=== PATIENT | female | born 2000 | race Two or more races ===

== ENCOUNTER 2024-06-19 20:28 | Emergency (ER) | payer OTHER ==
[~2024-06-19] VITALS: Ht 154.9 cm; Wt 55.3 kg
[2024-06-19] MEDS ORDERED: PRENATAL + DHA1 EAC1 PO (21:25)
[2024-06-19] MEDS ORDERED: MONTELUKAST SODIUM 10 MG TABLET PO ONE (21:45)
[2024-06-19] MEDS ORDERED: GUAIFENESIN 200 MG/10 ML BLIST.PACK PO ONE ×2 (21:45→21:56)
[2024-06-19 23:28] LABS: HEMATOCRIT 32.8 % (36.0-45.00); HEMOGLOBIN 11.8 g/dL (12.0-15.00); MEAN CELL VOLUME 82.6 fL (80.00-100.00); MEAN CORPUSCULAR HEMOGLOBIN 29.6 pg (27.00-32.0); MEAN CORPUSCULAR HGB CONC 35.9 g/dl (32.0-36.0); PLATELET COUNT 266 K/uL (150-450); RED BLOOD COUNT 3.97 M/uL (4.00-6.00); RED CELL DISTRIBUTION WIDTH 13.5 % (11.5-14.5)
[2024-06-20] MEDS ORDERED: ZYRTEC10 M3 PO (00:34)
[2024-06-20] MEDS ORDERED: OSEL75CA PO (00:41)
== END 2024-06-20 01:11 ==
LOC: ER 20:30
PROVIDERS: General Practice
DX: O26.892 Other specified pregnancy related conditions, second trimester (principal); J00 Acute nasopharyngitis [common cold]; Z3A.24 24 weeks gestation of pregnancy; Z20.822 Contact with and (suspected) exposure to COVID-19

== ENCOUNTER 2024-07-07 13:47 | Emergency (ER) | payer OTHER ==
[~2024-07-07] VITALS: Ht 154.9 cm; Wt 53.5 kg
[~2024-07-07 13:47] MED LIST: OSEL75CA PO; PRENATAL + DHA1 EAC1 PO; ZYRTEC10 M3 PO
[2024-07-07] MEDS ORDERED: CEFTRIAXONE SODIUM 1,000 MG VIAL IM STA (14:29)
[2024-07-07] MEDS ORDERED: CEFADROXIL500 MG PO (14:36)
[2024-07-07] MEDS ORDERED: CEFTRIAXONE SODIUM 1,000 MG VIAL ONE (14:49)
== END 2024-07-07 15:32 | disposition home or self-care (01) ==
LOC: ER 13:49
DX: O98.812 Other maternal infectious and parasitic diseases complicating pregnancy, second trimester (principal); Z3A.27 27 weeks gestation of pregnancy; J03.80 Acute tonsillitis due to other specified organisms
CPT/HCPCS: 96372; 99282; J0696

== ENCOUNTER 2024-07-27 17:21 | Outpatient (CLI) | payer OTHER ==
[2024-07-27 16:30] VITALS: BP 124/76
[~2024-07-27 17:21] MED LIST changes: +CEFADROXIL500 MG PO
[2024-07-27] MEDS ORDERED: RINGERS SOLUTION,LACTATED 1,000 ML IV SCH (18:15)
[2024-07-27] MEDS ORDERED: MORPHINE SULFATE 4 MG/ML VIAL IV ONE (18:30)
[2024-07-27 18:49] LABS: PH,URINE 6.5 (5.0-8.0); URINE APPEARANCE Cloudy; URINE BILIRRUBIN Negative (NEGATIVE); URINE BLOOD Negative; URINE COLOR Yellow; URINE GLUCOSE Negative (NEGATIVE); URINE KETONE Trace (NEGATIVE); URINE LEUKOCYTE Small; URINE NITRATE Negative; URINE PROTEIN Negative (NEGATIVE); URINE UROBILINOGEN 0.2 E.U./dl
[2024-07-27 18:51] LABS: HEMATOCRIT 32.6 % (36.0-45.00); HEMOGLOBIN 11.3 g/dL (12.0-15.00); MEAN CORPUSCULAR HEMOGLOBIN 28.8 pg (27.00-32.0); MEAN CORPUSCULAR HGB CONC 34.7 g/dl (32.0-36.0); PLATELET COUNT 259 K/uL (150-450); RED BLOOD COUNT 3.93 M/uL (4.00-6.00); RED CELL DISTRIBUTION WIDTH 13.2 % (11.5-14.5)
[2024-07-27 18:53] LABS: URINE EPITHELIAL CELLS 125.5 uL (0.0-38.8); URINE WBC 131.4 uL (0.0-23.2)
[2024-07-27 19:04] LABS: URINE CAST 0.88 uL (0.0-1.40)
[2024-07-27 19:19] LABS: ALBUMIN 3.1 gm/dL (3.4-5.0); BILIRUBIN TOTAL 0.35 mg/dL (0.3-1.2); CALCIUM 8.9 mg/dL (8.5-10.1); CREATININE SERUM 0.36 mg/dL (0.55-1.02); GFR 225.4; GLOBULINA 3.6 G/DL (2.4-3.5); POTASSIUM 4.12 mEq/L (3.5-5.1); TOTAL PROTEIN 6.7 gm/dL (6.4-8.2)
[2024-07-27 20:36] VITALS: BP 103/68
[2024-07-27 23:15] VITALS: BP 104/63
[2024-07-28 03:58] VITALS: BP 94/58; O2SAT 97
[2024-07-28 07:22] VITALS: BP 91/51
[2024-07-28 09:28] VITALS: BP 91/51
[2024-09-30] MEDS ORDERED: IBUPROFEN800 MG PO (08:52)
== END 2024-07-28 09:43 | disposition home or self-care (01) ==
LOC: OBS/DEL 17:21
PROVIDERS: Obstetrics & Gynecology; ATTEND Specialist
DX: O26.893 Other specified pregnancy related conditions, third trimester (principal); Z3A.29 29 weeks gestation of pregnancy